=== PATIENT | male | born 1990 | race American Indian/Alaskan Native ===

== ENCOUNTER 2018-09-10 21:36 | Emergency (ER) | payer OTHER ==
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
[2018-09-11 00:08] VITALS: BP 139/86
== END 2018-09-11 00:07 | disposition home or self-care (01) ==
LOC: ED 21:36
DX: S80.812A Abrasion, left lower leg, initial encounter (principal); V49.40XA Driver injured in collision with unspecified motor vehicles in traffic accident, initial encounter; Y93.89 Activity, other specified; Y92.89 Other specified places as the place of occurrence of the external cause; Y99.8 Other external cause status
CPT/HCPCS: 99283